=== PATIENT | female | born 1945 | race Caucasian/White ===

== ENCOUNTER 2017-01-16 07:10 | Day surgery (SDC) | payer MEDICARE, OTHER ==
[~2017-01-16] VITALS: Ht 161.9 cm; Wt 49.0 kg
[~2017-01-16 07:10] MED LIST: 0.9% Sodium Chloride 1,000 ML IV SCH; ALBU8.5H2 INHALATION; EPIN0.3P2 IJ; ESCI10TA3 PO; ESTR1PAT13 TD; EYEL1TOW2 TP; HYG25 PO; LEVO88TA4 PO; LIOT5TAB3 PO; MOME17SP NS; OLP.1OP5 OD; POTA10TA12 PO; Sodium Chloride LOK Flush 10 mL Syringe IV PRN; fentaNYL-PF 50 mCg/mL 2 mL Inj IVPUSH PRN
[2017-01-16 07:52] VITALS: BP 127/69; PULSE 78; RESP 12; O2SAT 99
[2017-01-16] MEDS ORDERED: 0.9% Sodium Chloride 1,000 ML IV ONE (08:10)
[2017-01-16 08:24] VITALS: BP 121/69; PULSE 54; RESP 14; O2SAT 100
[2017-01-16 08:41] VITALS: BP 115/69; PULSE 68; RESP 12; O2SAT 100
--- NOTE | 2017-01-16 12:23 | ENDO ---
[address] [address] ENDOSCOPY PROCEDURE PATIENT: LOU [place] : 1945 MR#: [id number] ADMIT: 01/16/2017 JOB ID: [id number] DATE OF SERVICE: 01/16/2017 PROCEDURE PERFORMED: Colonoscopy. INDICATIONS: Screening. ASA CLASSIFICATION: The patient's ASA classification is II. MALLAMPATI SCORE: Mallampati score was 2. MEDICATIONS: 1. Versed 3 mg. 2. Fentanyl 75 mcg. INSTRUMENT USED: [id number]. PREPARATION QUALITY: Fair. PROCEDURE DETAILS: After informed consent was obtained, the patient was brought into the GI suite, where she was placed on oxygen via nasal cannula and monitored with continuous pulse oximeter, telemetry, and blood pressure monitoring. A time-out was performed. Then, she was placed in the left lateral decubitus position and medications were administered for sedation. Digital rectal exam was performed which was unremarkable. The colonoscope was then inserted into the rectum and advanced under direct visualization to the cecum, which was identified by the presence of the ileocecal valve and appendiceal orifice. Once the cecum was reached, the colonoscope was withdrawn back into the rectum, as the mucosa and lumen were examined. In the rectum, retroflexion was performed. Following retroflexion, remaining air in the rectum was suctioned, and procedure was completed. FINDINGS: 1. The mucosa throughout the entire colon had a pigmented appearance. 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 2. In the sigmoid colon there was an approximately 4 mm sessile polyp that was removed with a cold snare. 3. Retroflexed views in the rectum revealed moderate-sized internal hemorrhoids. IMPRESSION: 1. Sigmoid polyp. 2. Melanosis coli. 3. Internal hemorrhoids. RECOMMENDATIONS: 1. Repeat colonoscopy pending polyp pathology results. 2. Fiber-rich diet. COMPLICATIONS: None. ESTIMATED BLOOD LOSS: Less than 5 mL.
--- NOTE | 2017-01-20 10:32 | PATH ---
SURGICAL PATHOLOGY Attending Physician:Ted Barlow CASE STATUS: Signed Out PATIENT NAME: LOU NY PID: [id number] : 1945 DATE COLLECTED:01/16/2017 15:37 SPECIMEN: Colon, Polyp CLINICAL HISTORY: 1). SIGMOID POLYP FINAL DIAGNOSIS: Sigmoid Colon Polyp: Changes consistent with miniscule tubular adenoma. ICD10: D12.5 GROSS DESCRIPTION: Received in formalin, labeled with the patient' s name and "sigmoid polyp", is one fragment of adam, soft tissue measuring 0.2 x 0.2 x 0.1 cm. The fragment is totally submitted in one cassette. ([id number]) ICD-9 CODES: CPT CODES: 1: 93343 Electronically Signed Out Davian Blakely MD [facility] Pathology [facility] [address], [place] [address] Technical component performed at [facility], [address], [address]
== END 2017-01-16 23:59 | disposition home or self-care (01) ==
LOC: END 07:10
PROVIDERS: ATTEND Internal Medicine Gastroenterology
DX: Z12.11 Encounter for screening for malignant neoplasm of colon (principal); D12.5 Benign neoplasm of sigmoid colon; K63.89 Other specified diseases of intestine; K64.8 Other hemorrhoids; J45.909 Unspecified asthma, uncomplicated; E78.00 Pure hypercholesterolemia, unspecified; E07.9 Disorder of thyroid, unspecified; Z79.51 Long term (current) use of inhaled steroids
CPT/HCPCS: 45385; G0500; J2250; J3010; J7030